=== PATIENT | female | born 1980 | race Caucasian/White ===

== ENCOUNTER 2016-10-13 16:38 | Outpatient (CLI) | payer BC ==
--- NOTE | 2016-10-13 17:25 | CT ---
CT OF LUMBAR SPINE PERFORMED WITHOUT CONTRAST ENHANCEMENT: Date: 10/13/16 HISTORY: Back pain, SI joint dysfunction. FINDINGS: The vertebral bodies are normal in height. The disc spaces all appear well preserved. No signs of an y pars defects. Bilateral I bars are noted across both SI joints. There is no significant periaortic adenopathy. Review of the disc levels shows no signs of any definite disc herniation at any of the vertebral bod y levels. At L4-5, there is some mild disc bulge with some borderline canal narrowing. IMPRESSION: 1. Bilateral I bars placed across the SI joints. 2. Disc bulge at the L4-5 level. This appears to be associated with a mild degree of canal stenosis . This would be better assessed with myelography if indicated. POS: [facility]ACK
== END 2016-10-13 16:39 | disposition home or self-care (01) ==
LOC: MADCT 16:38
PROVIDERS: ATTEND Neurological Surgery
DX: M53.3 Sacrococcygeal disorders, not elsewhere classified (principal)
CPT/HCPCS: 72131

== ENCOUNTER 2017-01-30 12:11 | Emergency (ER) | payer BC ==
[~2017-01-30 12:11] MED LIST: Sodium Chloride 0.9% 1,000 ML BAG ONE
[2017-01-30] MEDS ORDERED: methylPREDNISolone Sod Succ/PF 125 MG/2 ML VIAL ONE (12:57)
[2017-01-30] MEDS ORDERED: Ondansetron HCl/PF 4 MG/2 ML Vial ONE (12:57)
[2017-01-30] MEDS ORDERED: Ketorolac Tromethamine 30 MG/ML VIAL ONE (12:57)
[2017-01-30 13:04] LABS: #Basophils 0.1 thou/uL (0.0-0.2); #Eosinphils 0.1 thou/uL (0.0-0.7); #Lymphocytes 1.7 thou/uL (1.20-3.40); #Monocytes 0.4 thou/uL (0.11-0.59); #Neutrophils 4.2 thou/uL (1.40-6.50); %Basophils 1.4 % (0.0-1.0); %Eosinophils 1.7 % (0.0-10.0); %Lymphocytes 25.7 % (21.0-51.0); %Monocytes 5.8 % (0.0-10.0); %Neutrophils 65.4 % (42.0-75.0); Hemoglobin 15.4 g/dL (12.0-16.0); Mean Corpuscular HGB CONC 34.3 g/dL (32.0-36.0); Mean Corpuscular Hemoglobin 32.9 pg (27.0-31.0); Mean Corpuscular Volume 95.9 fl (81.0-99.0); Mean Platelet Volume 7.3 fL (7.4-10.4); Platelet Count 224 thou/uL (130-400); RBC Distribution Width 11.1 % (11.5-14.5); Red Blood Cell (RBC) Count 4.68 mill/uL (4.20-5.40); White Blood Cell (WBC) Count 6.5 thou/uL (4.8-10.8)
[2017-01-30] MEDS ORDERED: SUMAtriptan Succinate 6 MG/0.5 ML VIAL ONE (13:17)
[2017-01-30 13:18] LABS: ALT (SGPT) 15 U/L (8-55); AST (SGOT) 15 U/L (5-34); Albumin 4.4 g/dL (3.5-5.0); Alkaline Phosphatase 67 U/L (40-150); Anion Gap 12 mmol/L (10-20); BUN (Urea Nitrogen) 7 mg/dL (7.0-18.7); Bilirubin, Total 0.4 mg/dL (0.2-1.2); Calc. Creatinine Clearance 0 mL/min (70-130); Calcium 9.3 mg/dL (7.8-10.44); Carbon Dioxide 25 mmol/L (22-29); Chloride 106 mmol/L (98-107); Estimated GFR-MDRD 78; Globulin 3.1 g/dL (2.4-3.5); Glucose 104 mg/dL (70-105); Potassium 3.8 mmol/L (3.5-5.1); Protein, Total 7.5 g/dL (6.0-8.3); Sodium 139 mmol/L (136-145)
[2017-01-30] MEDS ORDERED: diphenhydrAMINE HCl 50 MG/ML 1 ML VIAL ONE (13:48)
[2017-01-30] MEDS ORDERED: Metoclopramide HCl 10 MG/2 ML VIAL ONE (13:48)
== END 2017-01-30 14:47 | disposition home or self-care (01) ==
LOC: MADERS 12:11
DX: G43.909 Migraine, unspecified, not intractable, without status migrainosus (principal); A08.4 Viral intestinal infection, unspecified; F17.200 Nicotine dependence, unspecified, uncomplicated
CPT/HCPCS: 80053; 85025; 96361; 96372; 96374; 96375; J1200; J1885; J2405; J2765; J2930; J3030; J7050